=== PATIENT | female | born 1980 | race Hispanic/Latino ===

== ENCOUNTER 2021-08-15 10:17 | Emergency (ER) | payer SELFPAY ==
[~2021-08-15] VITALS: Ht 152.4 cm; Wt 59.0 kg
[2021-08-15 10:52] VITALS: BP 118/68
[2021-08-15] MEDS ORDERED: IBUPROFEN 600 MG TABLET PO SCH (11:00)
[2021-08-15] MEDS ORDERED: IBUPROFEN 600 MG TABLET PO ONE (11:00)
[2021-08-15] MEDS ORDERED: METH4TAB PO (11:16)
[2021-08-15] MEDS ORDERED: CYCL10TA16 PO (11:16)
[2021-08-15] MEDS ORDERED: IBUP-2070 PO (11:16)
[2021-08-15] MEDS ORDERED: ACET1TAB25 PO (11:16)
== END 2021-08-15 11:38 | disposition home or self-care (01) ==
LOC: EDH 10:17
DX: S20.211A Contusion of right front wall of thorax, initial encounter (principal); Z79.1 Long term (current) use of non-steroidal anti-inflammatories (NSAID); Z79.52 Long term (current) use of systemic steroids; X58.XXXA Exposure to other specified factors, initial encounter; Y93.89 Activity, other specified; Y92.89 Other specified places as the place of occurrence of the external cause; Y99.8 Other external cause status
CPT/HCPCS: 71046; 93005

== ENCOUNTER 2023-12-28 08:54 | Emergency (ER) | payer OTHER ==
[~2023-12-28] VITALS: Ht 152.4 cm; Wt 70.8 kg
[~2023-12-28 08:54] MED LIST: ACET-2079 PO; CYCL10TA16 PO; IBUP-2070 PO; METH4TAB PO
[2023-12-28] MEDS: PANTOPRAZOLE 40 MG TAB DR PO ONE (09:49)
[2023-12-28] MEDS: KETOROLAC 30MG VIAL (30MG/ML) IM ONE (09:49)
[2023-12-28] MEDS: ONDANSETRON ODT 4MG TAB SL ONE (09:50)
[2023-12-28 09:59] LABS: BASOPHILS # (AUTO) 0.04 K/uL (0.00-0.20); BASOPHILS % (AUTO) 0.4 % (0.0-5.0); EOSINOPHILS # (AUTO) 0.06 K/uL (0.00-0.70); EOSINOPHILS % (AUTO) 0.6 % (0.0-8.0); HEMATOCRIT 31.6 % (36-48); IMMATURE GRANULOCYTE ABSOLUTE 0.04 K/uL (0-1); LYMPHOCYTES # (AUTO) 2.2 K/uL (1.0-4.8); MEAN CORPUSCULAR HEMOGLOBIN 19.5 pg (27.0-33.0); MEAN CORPUSCULAR HGB CONC 28.8 g/dL (32.0-36.0); MEAN CORPUSCULAR VOLUME 67.7 fL (79-99); MONOCYTES # (AUTO) 0.6 K/uL (0.1-1.0); MONOCYTES % (AUTO) 6.3 % (3.0-13.0); NEUTROPHILS # (AUTO) 6.7 K/uL (1.8-7.7); NEUTROPHILS % (AUTO) 69.3 % (40.0-77.0); PLATELET COUNT (AUTO) 560 K/uL (130-400); RED BLOOD CELL COUNT(AUTO) 4.67 MIL/uL (4.00-5.50); RED CELL DISTRIBUTION WIDTH 16.7 % (11.0-15.5); WHITE BLOOD COUNT (AUTO) 9.6 K/uL (4.8-10.8)
[2023-12-28 10:09] LABS: APPEARANCE,URINE CLOUDY (CLEAR); BILIRUBIN,URINE NEGATIVE (NEGATIVE); COLOR,URINE YELLOW (YELLOW); GLUCOSE, URINE (UA) NEGATIVE (NEGATIVE); KETONES,URINE NEGATIVE (NEGATIVE); LEUKOCYTE ESTERASE ,URINE 75 Leu/uL (NEGATIVE); NITRATE,URINE 2+ (NEGATIVE); PH,URINE 5.5 (5.0-8.0); PROTEIN,URINE 10 mg/dL (NEGATIVE); UROBILINOGEN,URINE 0.2 mg/dL (0.2-1.0)
[2023-12-28 10:15] LABS: CREATININE 0.6 mg/dL (0.5-1.0); POTASSIUM 3.4 mmol/L (3.5-5.1)
[2023-12-28 10:19] LABS: ALBUMIN 3.6 g/dL (3.5-5.0); BILIRUBIN,TOTAL 0.3 mg/dL (0.2-1.0); TOTAL PROTEIN, SERUM 8.2 g/dL (6.0-8.3)
[2023-12-28 10:53] LABS: ADD UA MICROSCOPIC YES
[2023-12-28] MEDS ORDERED: MACR100 PO (11:00)
[2023-12-28] MEDS ORDERED: ONDA4TAB10 PO (11:00)
[2023-12-28] MEDS ORDERED: IBUP-2077 PO (11:02)
[2023-12-28 11:24] LABS: BACTERIA,URINE MANY /HPF (None Seen); MUCUS,URINE MANY LPF (None Seen); OTHER CASTS, URINE 1 /LPF (None Seen); SQUAMOUS EPITHELIAL CELL,UR MOD /HPF (0-2)
[2023-12-28 11:38] VITALS: BP 139/84; PULSE 78; RESP 18; O2SAT 98
== END 2023-12-28 11:38 | disposition home or self-care (01) ==
LOC: EDH 08:54
DX: M79.10 Myalgia, unspecified site (principal); N39.0 Urinary tract infection, site not specified; D64.9 Anemia, unspecified; Z79.899 Other long term (current) drug therapy
CPT/HCPCS: 99283; 80053; 85025; 87077; 87088; 87186; 81001; 81025; 36415; 96372; J1885